=== PATIENT | female | born 1990 ===

== ENCOUNTER 2021-07-23 05:30 | Inpatient (IN) | payer BC ==
[~2021-07-23 05:30] MED LIST: Acetaminophen 500 MG TAB PO PRN; Butorphanol Tartrate 1 MG/ML VIAL SLOW IVP PRN; Carboprost 250 MCG/ML AMP IM PRN; Diphenoxylate HCl/Atropine Tablet PO PRN; HYDROcodone/Acetaminophen 5/325 mg Tablet PO PRN; Ibuprofen 800 MG TAB PO PRN; Lidocaine 1% (PF) 30 ML VIAL SC PRN; Methylergonovine 0.2 MG/ML VIAL IM PRN; Misoprostol 200 MCG TAB PR PRN; NS w/ Oxytocin 30 units 500 ML IV SCH; Ondansetron PF 4 MG/2 ML Vial IVP PRN; Promethazine HCl 25 MG/ML VIAL IM PRN; hydrALAZINE 20 MG/ML VIAL SLOW IVP PRN
[2021-07-23 06:18] VITALS: BMI 25.8
[2021-07-23] MEDS ORDERED: Misoprostol 100 MCG TAB VAG SCH (06:30)
[2021-07-23 07:33] LABS: Hemoglobin 8.8 g/dL (12.0-15.5); Mean Corpuscular HGB CONC 30.9 g/dL (32.0-36.0); Mean Corpuscular Hemoglobin 27.1 pg (27.0-33.0); Mean Corpuscular Volume 87.7 fl (81.6-98.3); Mean Platelet Volume 9.4 fl (7.4-10.4); Platelet Count 232 10x3/uL (150-450); RBC Distribution Width 13.9 % (11.5-14.5); Red Blood Cell (RBC) Count 3.25 10x6/uL (3.90-5.03); White Blood Cell (WBC) Count 7.6 10x3/uL (3.5-10.5)
[2021-07-23] MEDS ORDERED: Bupivacaine 0.25% HCL 30 ML VIAL ONE (08:00)
[2021-07-23] MEDS ORDERED: ePHEDrine Sulfate 50 MG/10 ML VIAL ONE (08:00)
[2021-07-23 08:11] LABS: Syphilis Antibody Nonreactive (Nonreactive); Syphilis Antibody Index 0.05 S/CO (<1.00 Non-Reactive)
[2021-07-23 08:12] LABS: Hep B Surf Ag Non-Reactive S/CO (NonReactive)
[2021-07-23] MEDS: Misoprostol 100 MCG TAB VAG SCH ×2 (08:18→14:39)
[2021-07-23 08:25] LABS: HBSAg Index 0.18 S/CO (0-0.99)
[2021-07-23] MEDS: Lactated Ringer's 1,000 ML IV SCH ×3 (11:40→18:17)
[2021-07-23] MEDS ORDERED: Fentanyl 2 mcg/Bup 0.1% Cadd 100 ML ONE (16:11)
[2021-07-23] MEDS: NS w/ Oxytocin 30 units 500 ML IV SCH ×2 (18:28→19:13)
[2021-07-23] MEDS ORDERED: HYDROcodone/Acetaminophen 5/325 mg Tablet PO PRN (20:29)
[2021-07-23] MEDS ORDERED: Measles/Mumps/Rubella 10 MCG/0.5 ML VIAL SC ONE (20:29)
[2021-07-23] MEDS ORDERED: Lanolin Ointment 7 GM TUBE TOP PRN (20:29)
[2021-07-23] MEDS ORDERED: Milk Of Magnesia 30 ML UDCUP PO PRN (20:29)
[2021-07-23] MEDS ORDERED: hydrALAZINE 20 MG/ML VIAL SLOW IVP PRN (20:29)
[2021-07-23] MEDS ORDERED: Zolpidem Tartrate 5 MG TAB PO PRN (20:29)
[2021-07-23] MEDS ORDERED: Promethazine HCl 25 MG/ML VIAL IM PRN (20:29)
[2021-07-23] MEDS ORDERED: Preparation H Ointment 28 GM TUBE PR PRN (20:29)
[2021-07-23] MEDS ORDERED: Benzocaine-Menthol 82.5 ML CAN TOP PRN (20:29)
[2021-07-23] MEDS ORDERED: Boostrix 0.5 ML (Tdap) VIAL IM ONE (20:29)
[2021-07-23] MEDS ORDERED: Ondansetron PF 4 MG/2 ML Vial IVP PRN (20:29)
[2021-07-23] MEDS ORDERED: NS w/ Oxytocin 30 units 500 ML IV SCH (20:29)
[2021-07-23] MEDS ORDERED: diphenhydrAMINE 25 MG CAP PO PRN (20:29)
[2021-07-23] MEDS ORDERED: Methylergonovine 0.2 MG/ML VIAL IM PRN (20:29)
[2021-07-23] MEDS ORDERED: Bisacodyl 10 MG SUPP PR PRN (20:29)
[2021-07-23] MEDS ORDERED: Varicella virus, LIVE 0.5 ML VIAL SC ONE (20:29)
[2021-07-23] MEDS: Docusate 100 MG CAP PO SCH (22:13)
[2021-07-23] MEDS: Ibuprofen 800 MG TAB PO SCH (22:13)
[2021-07-24] MEDS: Ibuprofen 800 MG TAB PO SCH ×2 (05:23→13:51)
[2021-07-24 05:24] LABS: Mean Corpuscular Hemoglobin 27.7 pg (27.0-33.0); Mean Corpuscular Volume 86.5 fl (81.6-98.3); Mean Platelet Volume 9.5 fl (7.4-10.4); Platelet Count 186 10x3/uL (150-450); Red Blood Cell (RBC) Count 2.89 10x6/uL (3.90-5.03); White Blood Cell (WBC) Count 13.1 10x3/uL (3.5-10.5)
[2021-07-24] MEDS ORDERED: Prenatal Vitamin 1 TAB PO SCH (09:00)
[2021-07-24] MEDS: Ferrous Sulfate 325 MG TAB PO SCH ×2 (09:08→17:39)
[2021-07-24] MEDS: Docusate 100 MG CAP PO SCH (09:08)
[2021-07-24 11:24] VITALS: BP 116/55; TEMP 98.4
== END 2021-07-24 20:56 | disposition home or self-care (01) | DRG 807 ==
LOC: CSHLD 05:49 → CSHPP 20:32
PROVIDERS: ADMIT Obstetrics & Gynecology; ATTEND Obstetrics & Gynecology
PROC: 10E0XZZ Delivery of Products of Conception, External Approach (ICD-10-PCS; principal; 2021-07-23)
PROC: 3E0P7VZ Introduction of Hormone into Female Reproductive, Via Natural or Artificial Opening (ICD-10-PCS; 2021-07-23)
DX: O80 Encounter for full-term uncomplicated delivery (principal); Z37.0 Single live birth; Z3A.39 39 weeks gestation of pregnancy; Z88.2 Allergy status to sulfonamides; Z88.8 Allergy status to other drugs, medicaments and biological substances
CPT/HCPCS: 36415; 51701; 85027; 86780; 86850; 86900; 86901; 87340; J2590; J7120; S0020; U0003; U0005